=== PATIENT | female | born 1965 | race Caucasian/White ===

== ENCOUNTER 2016-07-26 01:07 | Emergency (ER) | payer BC ==
[~2016-07-26] VITALS: Ht 167.6 cm; Wt 97.2 kg
[~2016-07-26 01:07] MED LIST: ALPR-411 PO; CALC500C3 PO; CYCL10TA6 PO; DIPH-416 PO; [UNRECOGNIZED DRUG - CODE] PO
[2016-07-26 01:11] VITALS: TEMP 36.5; Ht 167.6 cm; Wt 97.2 kg
[2016-07-26] MEDS ORDERED: HYDROmorphone INJ 1 MG/ML SYR IV STA ×2 (01:21→03:08)
[2016-07-26] MEDS ORDERED: METOCLOPRAMIDE HCL INJ 5 MG/ML 2 ML VIAL IV STA (01:21)
[2016-07-26] MEDS ORDERED: KETOROLAC TROMETHAMINE 30 MG/ML VIAL IV STA (01:21)
[2016-07-26] MEDS ORDERED: SODIUM CHLORIDE 0.9% 1000ML 1,000 ML IV STA (01:21)
--- NOTE | 2016-07-26 01:26 | EMERGENCY ROOM VISIT NOTE ---
History Report prepared by Melony: Rivka Kim Under the Supervision of: Dr. David Christianson M.D. First contact with patient: 01:14 Chief Complaint: ABDOMINAL PAIN Stated Complaint: PANCREATITIS ATTACK History of Present Illness The patient is a 51 year old female who presents to the Emergency Room with complaints of worsening right sided abdominal pain that started yesterday. She rates her discomfort as a 7/10 in severity and reports the pain radiates into her flank and low back. Movement worsens her discomfort. She has a history of pancreatitis and states the pain feels similar to a pancreatitis attack. She has not taken any medication for the pain yet. She states her pain worsened this evening, so she came to the ED. The patient admits she has not been watching her diet that well recently. She denies drinking alcohol recently stating "I don't drink at all". The patient also denies any hematuria or dysuria. Source of History: patient Onset: yesterday Position: abdomen Symptom Intensity: 7/10 Timing: worsening Modifying Factors (Worsening): movement Associated Symptoms: + back pain, No urinary symptoms Review of Systems See HPI for pertinent positives & negatives. A total of 10 systems reviewed and were otherwise negative. Past Medical & Surgical Medical Problems: (1) Anxiety (2) Cervical osteoarthritis (3) Depression (4) Irritable bowel syndrome (IBS) (5) Pancreatitis (6) S/P tonsillectomy Surgical Problems: (1) H/O: hysterectomy Family History FH: cancer FH: diabetes mellitus FH: hypertension Social History Smoking Status: Current Every Day Smoker Alcohol Use: none Drug Use: none Marital Status: Housing Status: lives with family Occupation Status: employed Current/Historical Medications Scheduled Desvenlafaxine Succinate (Pristiq), 100 MG PO DAILY Ondasetron Odt (Zofran Odt), 4 MG SL Q6H Sulfa/Trimethoprim (Bactrim Ds 800MG/160MG), 1 TAB PO BID Scheduled PRN Alprazolam (Alprazolam), 0.5 MG PO TID PRN for Anxiety Calcium Carbonate (Tums), 500 MG PO UD PRN for Indigestion Oxycodone/Acetaminophen 5MG/325MG (Percocet 5MG/325MG), 1-2 TAB PO Q4H PRN for Pain Allergies Coded Allergies: CI Pigment Blue 63 (Verified Allergy, Intermediate, NEURO COMPLICATIONS, ) Duloxetine (Verified Allergy, Intermediate, NEURO COMPLICATIONS, 07/26/16) Physical Exam Vital Signs Date Time Temp Pulse Resp B/P Pulse Ox O2 Delivery O2 Flow Rate FiO2 07/26/16 03:22 69 16 139/76 96 07/26/16 02:49 62 18 139/91 98 Room Air 07/26/16 01:11 36.5 83 20 164/97 98 Room Air Physical Exam GENERAL: Patient is a healthy-appearing well-nourished HEAD: Normocephalic atraumatic EYES: Ocular movements intact pupils equal and react to light OROPHARYNX mucous membranes are moist no exudates present no erythema or edema present NECK: Supple no nuchal rigidity CHEST: Good equal expansion LUNGS: Clear and equal to auscultation CARDIAC: Normal S1 and S2 ABDOMEN: Soft nontender no guarding BACK: Right sided CVA tenderness EXTREMITIES: No pain upon palpation normal muscle strength in all groups no clubbing cyanosis or edema NEURO: Patient is following commands is answering questions appropriately. Alert and oriented x3 Cranial Nerves 2-12 grossly intact Medical Decision & Procedures ER Provider Diagnostic Interpretation: This X-Ray was reviewed and interpreted by myself as we do not have a radiologist on staff overnight. KUB, 1 VIEW No evidence of free air or bowel obstruction. Moderate amount of stool present. This Ultrasound was reviewed and interpreted by the radiologist and reviewed by myself. US RUQ: No gallstones. No gallbladder wall thickening. Common bile duct within normal limits. Slightly echogenic liver, raising possibility of fatty infiltration. Small cystic structure in the wilbur hepatis, query hepatic cyst or choledochal cyst. Pancreas not visualized. Radiologist: Kamala Davison M.D. Laboratory Results 07/26/16 01:25 Red Blood Count 4.72, Mean Corpuscular Volume 92.2, Mean Corpuscular Hemoglobin 31.8, Mean Corpuscular Hemoglobin Concent 34.5, Mean Platelet Volume 11.2, Neutrophils (%) (Auto) 50.8, Lymphocytes (%) (Auto) 36.1, Monocytes (%) (Auto) 10.7, Eosinophils (%) (Auto) 2.0, Basophils (%) (Auto) 0.2, Neutrophils # (Auto ) 4.49, Lymphocytes # (Auto) 3.20, Monocytes # (Auto) 0.95, Eosinophils # (Auto ) 0.18, Basophils # (Auto) 0.02 07/26/16 01:25 Test 07/26/16 01:25 White Blood Count 8.86 K/uL (4.8-10.8) Red Blood Count 4.72 M/uL (4.2-5.4) Hemoglobin 15.0 g/dL (12.0-16.0) Hematocrit 43.5 % (37-47) Mean Corpuscular Volume 92.2 fL (80-100) Mean Corpuscular Hemoglobin 31.8 pg (25-34) Mean Corpuscular Hemoglobin Concent 34.5 g/dl (32-36) Platelet Count 239 K/uL (130-400) Mean Platelet Volume 11.2 fL (7.4-10.4) Neutrophils (%) (Auto) 50.8 % Lymphocytes (%) (Auto) 36.1 % Monocytes (%) (Auto) 10.7 % Eosinophils (%) (Auto) 2.0 % Basophils (%) (Auto) 0.2 % Neutrophils # (Auto) 4.49 K/uL (1.4-6.5) Lymphocytes # (Auto) 3.20 K/uL (1.2-3.4) Monocytes # (Auto) 0.95 K/uL (0.11-0.59) Eosinophils # (Auto) 0.18 K/uL (0-0.5) Basophils # (Auto) 0.02 K/uL (0-0.2) RDW Standard Deviation 44.6 fL (36.4-46.3) RDW Coefficient of Variation 13.3 % (11.5-14.5) Immature Granulocyte % (Auto) 0.2 % Immature Granulocyte # (Auto) 0.02 K/uL (0.00-0.02) Urine Color YELLOW Urine Appearance CLOUDY (CLEAR) Urine pH 5.0 (4.5-7.5) Urine Specific [place] 1.026 (1.000-1.030) Urine Protein NEG (NEG) Urine Glucose (UA) NEG (NEG) Urine Ketones NEG (NEG) Urine Occult Blood NEG (NEG) Urine Nitrite NEG (NEG) Urine Bilirubin NEG (NEG) Urine Urobilinogen NEG (NEG) Urine Leukocyte Esterase TRACE (NEG) Urine WBC (Auto) 10-30 /hpf (0-5) Urine RBC (Auto) 0-4 /hpf (0-4) Urine Hyaline Casts (Auto) 5-10 /lpf (0-5) Urine Epithelial Cells (Auto) >30 /lpf (0-5) Urine Bacteria (Auto) 3+ (NEG) Urine Crystals CALCIUM OXALATE (NONE Anion Gap 10.0 mmol/L (3-11) Est Creatinine Clear Calc Drug Dose 94.3 ml/min Estimated GFR () 95.4 Estimated GFR (Non- 82.3 BUN/Creatinine Ratio 17.0 (10-20) Calcium Level 8.7 mg/dl (8.5-10.1) Total Bilirubin 0.3 mg/dl (0.2-1) Direct Bilirubin < 0.1 mg/dl (0-0.2) Aspartate Amino Transf (AST/SGOT) 11 U/L (15-37) Alanine Aminotransferase (ALT/SGPT) 19 U/L (12-78) Alkaline Phosphatase 74 U/L (45-117) Total Protein 7.5 gm/dl (6.4-8.2) Albumin 3.9 gm/dl (3.4-5.0) Lipase 113 U/L (73-393) Labs reviewed by ED physician. Medications Administered Medications (Trade) Dose Ordered Sig/Brandie Route Start Time Stop Time Status Last Admin Dose Admin Sodium Chloride (Nss 1000ml) 1,000 ml @ 999 mls/hr Q1H1M STAT IV 07/26/16 01:21 07/26/16 02:21 DC 07/26/16 01:26 999 MLS/HR Ketorolac Tromethamine (Toradol Inj) 30 mg NOW STAT IV 07/26/16 01:21 07/26/16 01:24 DC 07/26/16 01:27 30 MG Hydromorphone HCl (Dilaudid Inj) 1 mg NOW STAT IV 07/26/16 01:21 07/26/16 01:24 DC 07/26/16 01:27 1 MG Metoclopramide HCl (Reglan Inj) 10 mg NOW STAT IV 07/26/16 01:21 07/26/16 01:24 DC 07/26/16 01:27 10 MG Ceftriaxone Sodium (Rocephin Inj) 1 gm NOW STAT IV 07/26/16 02:01 07/26/16 02:02 DC 07/26/16 02:49 1 GM Trimethoprim/ Sulfamethoxazole (Septra Ds 800/ 160MG Tab) 1 tab NOW STAT PO 07/26/16 02:01 07/26/16 02:02 DC 07/26/16 02:49 1 TAB Hydromorphone HCl (Dilaudid Inj) 1 mg NOW STAT IV 07/26/16 03:08 07/26/16 03:09 DC 07/26/16 03:20 1 MG Ondansetron HCl (Zofran Inj) 4 mg NOW STAT IV 07/26/16 03:08 07/26/16 03:09 DC 07/26/16 03:19 4 MG Oxycodone/ Acetaminophen (Percocet 5/ 325MG Home Pack) 1 homepack UD ONCE PO 07/26/16 03:45 07/26/16 03:46 DC 07/26/16 03:46 1 HOMEPACK Ondansetron HCl (ZOFRAN ODT 4MG Home Pack) 1 homepack UD ONCE PO 07/26/16 03:45 07/26/16 03:46 DC 07/26/16 03:46 1 HOMEPACK ED Course 0119: Past medical records reviewed. The patient was evaluated in room B7. A complete history and physical examination was performed. 0121: Reglan 10 mg IV, Dilaudid 1 mg IV, Toradol 30 mg IV, NSS 1000 ml @ 999 mls /hr IV. 0201: Septra Ds 800/160 mg 1 tab PO, Rocephin 1 gm IV. 0308: Zofran 4 mg IV, Dilaudid 1 mg IV. 0335: I reevaluated the patient. She is feeling much better. I discussed her results and discharge instructions and she verbalized complete understanding and agreement. 0345: Zofran 4 mg 1 homepack PO, Percocet 5/325 mg 1 homepack PO. Medical Decision Prior records/ancillary studies reviewed. Triage Nursing notes reviewed. The patient's history was concerning for abdominal pain. Differential diagnosis: Etiologies such as appendicitis, diverticulitis, PUD, biliary pathology, UTI, pancreatitis, obstruction, mesenteric ischemia, aortic pathology, infections, inflammatory bowel disease, renal colic, as well as others were entertained. This is a 51-year-old female who presents emergency department complaining of right-sided flank pain. The patient feels that this is her pancreatitis however she has a large amount of white blood cells in her urine and her lipase is normal. She also has right CVA tenderness. Based on these findings an IV was established, the patient given normal saline bolus, Toradol, Dilaudid, Rocephin as well as Bactrim. I do feel that the patient should be started on Bactrim for a urinary tract infection pending culture results. Patient was also given a prescription for Percocet for home for pain. Patient was in agreement with the treatment plan. Impression Primary Impression: Right flank pain Additional Impression: UTI (urinary tract infection) Scribe Attestation The scribe's documentation has been prepared under my direction and personally reviewed by me in its entirety. I confirm that the note above accurately reflects all work, treatment, procedures, and medical decision making performed by me. Departure Information Dispostion Home / Self-Care Prescriptions Ondasetron Odt (ZOFRAN ODT) 4 Mg Tab 4 MG SL Q6H for Nausea, #6 TAB Prov: David Christianson MD 07/26/16 Sulfa/Trimethoprim (Bactrim Ds 800MG/160MG) Tab 1 TAB PO BID for 7 Days, #14 TAB Prov: David Christianson MD 07/26/16 Oxycodone/Acetaminophen 5MG/325MG (PERCOCET 5MG/325MG) Tab 1-2 TAB PO Q4H Y for Pain, #14 TAB Prov: David Christianson MD 07/26/16 Referrals Aman Shah M.D.(DAISY) (PCP) Patient Instructions ED Flank Pain Uncertain Cause, ED Pancreatitis, ED UTI Cystitis Female, [facility], Pancreatitis Chronic Dc Additional Instructions Clear liquid diet next 48 hours You received narcotic or benzodiazepene medication while in the emergency room today. Do not drive, operate heavy machinery, or drink alcohol under the influence of this medication. Take 600 mg Ibuprofen every 6 hours Take Percocet for breakthrough pain Radiographs and CTs will be reread by a radiologist in the morning. Culture results are usually available in approx 48 hours You have been examined and treated today on an emergency basis only. This is not a substitute for, or an effort to provide, complete comprehensive medical care. It is impossible to recognize and treat all injuries or illnesses in a single emergency department visit. It is therefore important that you follow up closely with Dr Shah. Call as soon as possible for an appointment. Thank you for your time and consideration. I look forward to speaking with you again soon. Please don't hesitate to call us if you have any questions. Problem Qualifiers Additional Impression: UTI (urinary tract infection) Urinary tract infection type: acute cystitis Hematuria presence: without hematuria Qualified Codes: N30.00 - Acute cystitis without hematuria
[2016-07-26 01:34] LABS: BASO % 0.2 %; BASO ABS # 0.02 K/uL (0-0.2); COMPLETE YES; HEMATOCRIT 43.5 % (37-47); IG% 0.2 %; LYMPH % 36.1 %; MEAN CELL VOLUME 92.2 fL (80-100); MEAN CORPUSCULAR HEMOGLOBIN 31.8 pg (25-34); MEAN CORPUSCULAR HGB CONC 34.5 g/dl (32-36); MEAN PLATELET VOLUME 11.2 fL (7.4-10.4); MONO % 10.7 %; NEUT % 50.8 %; PLATELET COUNT 239 K/uL (130-400); RED BLOOD COUNT 4.72 M/uL (4.2-5.4); WHITE BLOOD COUNT 8.86 K/uL (4.8-10.8)
[2016-07-26 01:35] LABS: URINE APPEARANCE CLOUDY (CLEAR); URINE BILIRUBIN NEG (NEG); URINE COLOR YELLOW; URINE EPITHELIAL CELL AUTO >30 /lpf (0-5); URINE NITRITE NEG (NEG); URINE SPECIFIC GRAVITY 1.026 (1.000-1.030); UROBILINOGEN NEG (NEG)
[2016-07-26 01:50] LABS: MANUAL MICROSCOPIC REQUIRED? NO; REVIEW REQ? YES
[2016-07-26 01:52] LABS: ALT/SGPT 19 U/L (12-78); AST/SGOT 11 U/L (15-37); BLOOD UREA NITROGEN 14 mg/dl (7-18); CALCIUM 8.7 mg/dl (8.5-10.1); CARBON DIOXIDE 28 mmol/L (21-32); CHLORIDE 105 mmol/L (98-107); CREATININE 0.82 mg/dl (0.60-1.20); GLUCOSE 88 mg/dl (70-99); POTASSIUM 3.4 mmol/L (3.5-5.1); SODIUM 143 mmol/L (136-145)
[2016-07-26 01:55] LABS: ALKALINE PHOSPHATASE 74 U/L (45-117)
[2016-07-26] MEDS ORDERED: SULFAMETHOXAZOLE/TRIMETHOPRIM DS 800/160MG TAB PO STA (02:01)
[2016-07-26] MEDS ORDERED: CEFTRIAXONE SOD INJ 1 GM ADDVIAL IV STA (02:01)
[2016-07-26] MEDS ORDERED: ONDANSETRON INJ 2 MG/ML 2 ML VIAL IV STA (03:08)
[2016-07-26 03:22] VITALS: BP 139/76; PULSE 69; O2SAT 96
[2016-07-26] MEDS ORDERED: OXYC-57 PO (03:38)
[2016-07-26] MEDS ORDERED: SULF800T23 PO (03:38)
[2016-07-26] MEDS ORDERED: ONDA4TAB10 SL (03:38)
[2016-07-26] MEDS ORDERED: ONDANSETRON HOME PACK 4MG OD TAB PO ONE (03:45)
[2016-07-26] MEDS ORDERED: PERCOCET HOME PACK PO ONE (03:45)
--- NOTE | 2016-07-26 07:15 | DIAGNOSTIC IMAGING REPORT ---
ABDOMINAL ULTRASOUND, RIGHT UPPER QUADRANT HISTORY: Pt c/o RUQ abd pain. COMPARISON: Abdomen and pelvis CT 01/20/2016. FINDINGS: Pancreas: Obscured by overlying bowel gas. Liver: Stable 1.3 cm cyst within the liver adjacent to the portal vein. Gallbladder: No gallbladder wall thickening. No gallstones. CBD: 4 mm. Right kidney: No hydronephrosis. IMPRESSION: 1. Normal gallbladder. No gallstones. 2. Stable 1.3 cm cyst within the central aspect of the liver. 4. Pancreas obscured by overlying bowel gas. Electronically signed by: Pillo Hilario M.D. 07/26/2016 7:14 AM Dictated Date/Time: 07/26/2016 7:13 AM
--- NOTE | 2016-07-26 07:26 | DIAGNOSTIC IMAGING REPORT ---
KUB HISTORY: Right upper quadrant abdominal pain. COMPARISON: Abdomen and pelvis CT 01/20/2016. FINDINGS: The bowel gas pattern is unremarkable. There are no dilated loops of small bowel to suggest an obstruction. No renal calculi. No ureteral calculi. Round calcification within the right deep pelvis favors a phlebolith. No pneumoperitoneum or pneumatosis. IMPRESSION: Unremarkable bowel gas pattern. No evidence for bowel obstruction. Electronically signed by: Pillo Hilario M.D. 07/26/2016 7:25 AM Dictated Date/Time: 07/26/2016 7:24 AM
== END 2016-07-26 03:50 | disposition home or self-care (01) ==
LOC: C.EDB 01:08
DX: N30.00 Acute cystitis without hematuria (principal); F17.200 Nicotine dependence, unspecified, uncomplicated; F41.9 Anxiety disorder, unspecified; F32.9 Major depressive disorder, single episode, unspecified; K58.9 Irritable bowel syndrome, unspecified; Z90.710 Acquired absence of both cervix and uterus